=== PATIENT | female | born 1990 | race Caucasian/White ===

== ENCOUNTER 2019-09-06 16:11 | Inpatient (IN) ==
[2019-09-06] MEDS ORDERED: BUTORPHANOL 2 MG/ML VIAL IV PRN (16:34)
[2019-09-06] MEDS ORDERED: MEPERIDINE 50 MG/1 ML VIAL IV PRN (16:34)
[2019-09-06] MEDS ORDERED: LIDOCAINE 1% 50 ML VIAL MISC INJ ONE (16:34)
[2019-09-06 17:01] LABS: Basophils % 0.2 % (0.0-0.8); Eosinophils # 0.1 10*3/uL (0.0-0.87); Eosinophils % 0.5 % (0.00-10.9); Hematocrit 34.3 VOL% (35.7-47.0); Hemoglobin 11.3 GM/DL (12.0-16.0); Immature Granulocytes % 0.5 %; Immature Granulocytes Absolute 0.06 #; Lymphocytes # 3.2 10*3/uL (1.4-4.0); Lymphocytes % 26.1 % (21.3-54.2); Mean Corpuscular HGB Conc 32.9 GM/DL (32-36); Mean Corpuscular Volume 96.6 FL (87-102); Mean Platelet Volume 9.9 FL (9.6-12.0); Monocytes % 6.3 % (1.7-12.7); Neutrophils % 66.4 % (38.7-73.9); Platelet Count 234 T/CUMM (130-400); Red Blood Count 3.55 MC/CUMM (3.8-5.5); Red Cell Distribution Width 12.9 % (9.3-17.3); White Blood Count 12.4 T/CUMM (4-12)
[2019-09-06 17:18] LABS: Bilirubin,Total 0.6 MG/DL (0.2-1.0); Calcium 8.6 MG/DL (8.5-10.1); Osmolality,Calculated 271.7 MOS/KG (273-304); Total Protein 7.2 G/DL (6.4-8.3)
[2019-09-06] MEDS: LACTATED RINGERS 1,000 ML IV SCH (18:20)
[2019-09-06] MEDS: ONDANSETRON 4 MG/2 ML VIAL IV PRN (22:33)
[2019-09-06] MEDS ORDERED: diphenhydrAMINE 50 MG/1 ML VIAL IV PRN ×2 (23:35)
[2019-09-06] MEDS ORDERED: FAMOTIDINE 20 MG/2 ML VIAL IV ONE (23:35)
[2019-09-06] MEDS ORDERED: hydrOXYzine HCL 25 MG/1 ML VIAL IM PRN (23:35)
[2019-09-06] MEDS ORDERED: ePHEDrine 50 MG/ML AMP IV PRN (23:35)
[2019-09-06] MEDS ORDERED: PROMETHAZINE 25 MG/1 ML VIAL IM ONE (23:35)
[2019-09-06] MEDS ORDERED: NALOXONE 0.4 MG/ML VIAL IV PRN (23:35)
[2019-09-06] MEDS ORDERED: CITRIC ACID/SODIUM CITRATE 30 ML UDCUP PO ONE (23:35)
[2019-09-06] MEDS ORDERED: fentaNYL 2 MCG/ROPIV 0.2% EPID 100 ML EPIDURAL SCH (23:45)
[2019-09-07] MEDS ORDERED: OXYTOCIN/LR 20 UNIT/1,000 ML BAG IV SCH
[2019-09-07] MEDS: LACTATED RINGERS 1,000 ML IV SCH (00:26)
[2019-09-07 02:01] LABS: Apearance,Urine CLEAR (Clear); Bilirubin,Urine Negative (Negative); Blood, Urine Negative (Negative); Glucose,Urine (UA) Negative (Negative); Ketones,Urine 20 mg/dL (Negative); Nitrite,Urine Negative (Negative); Protein,Urine Negative; RBC,Urine <1 /HPF (0-4); Squamous Epithelial Cell,Urine Occasional /HPF (0-10); Urine Color Straw (Yellow); Urine Specific Gravity 1.004 (1.001-1.035); Urine Urobilinogen < 2.0 EU/DL (0.2-1.0); WBC,Urine <1 /HPF (0-6)
[2019-09-07] MEDS: ONDANSETRON 4 MG/2 ML VIAL IV PRN (04:29)
[2019-09-07] MEDS ORDERED: miSOPROStoL 200 MCG TABLET ONE (05:01)
[2019-09-07] MEDS ORDERED: CARBOPROST TROMETHAMINE 250 MCG/ML AMP IM ONE (05:01)
[2019-09-07] MEDS ORDERED: METHYLERGONOVINE 0.2 MG/1 ML AMP ONE (05:01)
[2019-09-07] MEDS ORDERED: LIDOCAINE 1% 50 ML VIAL ONE (05:04)
[2019-09-07] MEDS ORDERED: ONDANSETRON 4 MG/2 ML VIAL IV PRN (06:20)
[2019-09-07] MEDS ORDERED: BISACODYL 10 MG SUPP RECTAL PRN (06:20)
[2019-09-07] MEDS ORDERED: HYDROCORTISONE 2.5% RECTAL CREAM 30 GM TUBE TOP PRN (06:20)
[2019-09-07] MEDS ORDERED: RHO(D) IMMUNE GLOBULIN 300 MCG SYRINGE IM ONE (06:20)
[2019-09-07] MEDS ORDERED: LANOLIN 50% CREAM 0.3 OZ TUBE TOP PRN (06:20)
[2019-09-07] MEDS ORDERED: MEASLES/MUMPS/RUBELLA VACCINE 0.5 ML VIAL SUBCUT ONE (06:20)
[2019-09-07] MEDS ORDERED: ACETAMINOPHEN 325 MG TABLET PO PRN (06:20)
[2019-09-07] MEDS ORDERED: OXYTOCIN/LR 20 UNIT/1,000 ML BAG IV ONE (06:20)
[2019-09-07] MEDS ORDERED: WITCH HAZEL PADS 100/JAR TOP PRN (06:20)
[2019-09-07] MEDS ORDERED: DIPH/TET/ACEL PERT BOOSTER VACCINE 0.5 ML VIAL IM ONE (06:20)
[2019-09-07] MEDS ORDERED: BENZOCAINE 20%/MENTHOL 0.5% SPRAY 56 GM CAN TOP PRN (06:20)
[2019-09-07] MEDS: IBUPROFEN 800 MG TABLET PO PRN ×2 (09:11→19:33)
[2019-09-07] MEDS: oxyCODONE/ACETAMINOPHEN 5-325 MG TABLET PO PRN ×2 (11:59→19:32)
[2019-09-07] MEDS: DOCUSATE SODIUM 100 MG CAPSULE PO SCH (19:33)
[2019-09-08] MEDS: IBUPROFEN 800 MG TABLET PO PRN ×2 (01:16→15:40)
[2019-09-08] MEDS: oxyCODONE/ACETAMINOPHEN 5-325 MG TABLET PO PRN ×3 (01:16→18:29)
[2019-09-08 02:23] LABS: Basophils % 0.2 % (0.0-0.8); Eosinophils # 0.1 10*3/uL (0.0-0.87); Eosinophils % 1.5 % (0.00-10.9); Hematocrit 30.2 VOL% (35.7-47.0); Hemoglobin 9.7 GM/DL (12.0-16.0); Immature Granulocytes % 0.4 %; Immature Granulocytes Absolute 0.04 #; Lymphocytes # 3.8 10*3/uL (1.4-4.0); Lymphocytes % 39.4 % (21.3-54.2); Mean Corpuscular HGB Conc 32.1 GM/DL (32-36); Mean Corpuscular Volume 99.7 FL (87-102); Mean Platelet Volume 9.7 FL (9.6-12.0); Monocytes % 8.3 % (1.7-12.7); Neutrophils % 50.2 % (38.7-73.9); Platelet Count 166 T/CUMM (130-400); Red Blood Count 3.03 MC/CUMM (3.8-5.5); White Blood Count 9.6 T/CUMM (4-12)
[2019-09-08] MEDS: DOCUSATE SODIUM 100 MG CAPSULE PO SCH ×2 (10:00→20:27)
[2019-09-08] MEDS ORDERED: diphenhydrAMINE 2% CREAM 28 GM TUBE TOP PRN (20:25)
[2019-09-09] MEDS: IBUPROFEN 800 MG TABLET PO PRN (03:32)
[2019-09-09] MEDS: oxyCODONE/ACETAMINOPHEN 5-325 MG TABLET PO PRN ×2 (03:33→10:05)
[2019-09-09 07:37] VITALS: BP 98/57
[2019-09-09] MEDS: DOCUSATE SODIUM 100 MG CAPSULE PO SCH ×2 (10:05→10:06)
== END 2019-09-09 12:15 | disposition home or self-care (01) | DRG 560 ==
LOC: N.LDOUT 16:11 → N.LD 16:16 → N.OB 09-07 13:50
PROVIDERS: ADMIT Obstetrics & Gynecology; ATTEND Obstetrics & Gynecology

== ENCOUNTER 2020-03-15 20:32 | Observation (INO) ==
[2020-03-15] MEDS ORDERED: OXYTOCIN/LR 20 UNIT/1,000 ML BAG IV ONE (20:57)
[2020-03-15] MEDS ORDERED: MAGNESIUM HYDROXIDE SUSP 30 ML UDCUP PO PRN (21:26)
[2020-03-15] MEDS ORDERED: ONDANSETRON 4 MG/2 ML VIAL IV PRN (21:26)
[2020-03-15] MEDS ORDERED: BISACODYL 10 MG SUPP RECTAL PRN (21:26)
[2020-03-15] MEDS ORDERED: ACETAMINOPHEN 325 MG TABLET PO PRN (21:26)
[2020-03-15] MEDS ORDERED: HYDROmorphone 2 MG/1 ML VIAL IV STA (21:28)
[2020-03-15] MEDS ORDERED: LACTATED RINGERS 1,000 ML IV SCH (21:30)
[2020-03-15 21:38] LABS: Basophils % 0.2 % (0.0-0.8); Eosinophils # 0.1 10*3/uL (0.0-0.87); Eosinophils % 1.1 % (0.00-10.9); Hemoglobin 11.5 GM/DL (12.0-16.0); Immature Granulocytes % 0.4 %; Immature Granulocytes Absolute 0.05 #; Lymphocytes # 4.3 10*3/uL (1.4-4.0); Lymphocytes % 37.8 % (21.3-54.2); Mean Corpuscular HGB Conc 32.9 GM/DL (32-36); Mean Corpuscular Volume 97.2 FL (87-102); Mean Platelet Volume 10.2 FL (9.6-12.0); Monocytes % 6.1 % (1.7-12.7); Neutrophils % 54.4 % (38.7-73.9); Platelet Count 225 T/CUMM (130-400); Red Cell Distribution Width 12.1 % (9.3-17.3); White Blood Count 11.4 T/CUMM (4-12)
[2020-03-15 21:42] LABS: Calcium 8.6 MG/DL (8.5-10.1); Osmolality,Calculated 272.7 MOS/KG (273-304)
[2020-03-15 21:58] LABS: Eosinophils 1 % (0-10); Lymphocytes 31 % (20-55); Segmented Neutrophils 63 % (50-85); Total Cells Counted 100
[2020-03-16] MEDS: IBUPROFEN 800 MG TABLET PO PRN ×2 (00:17→14:30)
[2020-03-16] MEDS ORDERED: ONDANSETRON 4 MG/2 ML VIAL IV PRN (00:57)
[2020-03-16] MEDS ORDERED: MEPERIDINE 25 MG/1 ML VIAL IV PRN (00:57)
[2020-03-16] MEDS ORDERED: OXYTOCIN/LR 20 UNIT/1,000 ML BAG IV ONE (08:35)
[2020-03-16] MEDS ORDERED: DOCUSATE SODIUM 100 MG CAPSULE PO SCH (09:00)
[2020-03-16 10:08] LABS: Basophils % 0.4 % (0.0-0.8); Eosinophils # 0.1 10*3/uL (0.0-0.87); Eosinophils % 1.6 % (0.00-10.9); Hematocrit 30.7 VOL% (35.7-47.0); Hemoglobin 10.2 GM/DL (12.0-16.0); Immature Granulocytes % 0.3 %; Immature Granulocytes Absolute 0.02 #; Lymphocytes # 3.1 10*3/uL (1.4-4.0); Lymphocytes % 39.2 % (21.3-54.2); Mean Corpuscular HGB Conc 33.2 GM/DL (32-36); Mean Corpuscular Volume 96.8 FL (87-102); Mean Platelet Volume 10.4 FL (9.6-12.0); Monocytes % 6.7 % (1.7-12.7); NRBC # 0.03 10*3/uL; Neutrophils % 51.8 % (38.7-73.9); Platelet Count 178 T/CUMM (130-400); Red Blood Count 3.17 MC/CUMM (3.8-5.5); Red Cell Distribution Width 12.3 % (9.3-17.3); White Blood Count 7.9 T/CUMM (4-12)
[2020-03-16 13:31] VITALS: BP 83/41
[2020-03-18 12:25] LABS: DRVVT Screen Ratio 1.05 ratio (<1.20); INR 1.2 (0.9-1.1)
[2020-03-19 12:07] LABS: Phospholipid Ab IgM, S 11.4 MPL
== END 2020-03-16 14:45 | disposition home or self-care (01) ==
LOC: N.EDINP 20:32 → N.ED 20:32 → N.OB 22:15
PROVIDERS: ADMIT Obstetrics & Gynecology; ATTEND Obstetrics & Gynecology

== ENCOUNTER 2022-11-01 06:57 | Inpatient (IN) ==
[2022-11-01] MEDS ORDERED: CARBOPROST TROMETHAMINE 250 MCG/ML AMP IM PRN (08:36)
[2022-11-01] MEDS ORDERED: METHYLERGONOVINE 0.2 MG/1 ML AMP IM PRN (08:36)
[2022-11-01] MEDS ORDERED: OXYTOCIN/LR 20 UNIT/1,000 ML BAG IV ONE ×2 (08:36→18:11)
[2022-11-01] MEDS ORDERED: BUTORPHANOL 2 MG/ML VIAL IV PRN (08:36)
[2022-11-01] MEDS ORDERED: MEPERIDINE 50 MG/1 ML VIAL IV PRN (08:36)
[2022-11-01] MEDS ORDERED: MEPERIDINE 25 MG/1 ML VIAL IV PRN (08:36)
[2022-11-01] MEDS ORDERED: BUTORPHANOL 1 MG/ML VIAL IV PRN (08:36)
[2022-11-01] MEDS ORDERED: ONDANSETRON 4 MG/2 ML VIAL IV PRN (08:36)
[2022-11-01] MEDS ORDERED: miSOPROStoL 200 MCG TABLET RECTAL PRN (08:36)
[2022-11-01] MEDS ORDERED: TRANEXAMIC ACID 1,000 MG in SODIUM CHLORIDE 0.9% 100 ML IV PRN (08:36)
[2022-11-01 09:01] LABS: Basophils % 0.2 % (0.0-0.8); Eosinophils % 0.4 % (0.00-10.9); Hemoglobin 11.5 GM/DL (12.0-16.0); Immature Granulocytes % 0.2 %; Immature Granulocytes Absolute 0.02 #; Lymphocytes % 33.9 % (21.3-54.2); Mean Corpuscular HGB Conc 32.9 GM/DL (32-36); Mean Platelet Volume 9.6 FL (9.6-12.0); Monocytes # 0.6 10*3/uL (0.11-0.8); Monocytes % 7.2 % (1.7-12.7); Neutrophils % 58.1 % (38.7-73.9); Platelet Count 215 T/CUMM (130-400); Red Cell Distribution Width 12.6 % (9.3-17.3); White Blood Count 8.91 T/CUMM (4-12)
[2022-11-01 09:07] LABS: Mucus,Urine Few /LPF (Occasional); RBC,Urine 1 /HPF (0-4); Squamous Epithelial Cell,Urine Occasional /HPF (0-10)
[2022-11-01 09:08] LABS: Bilirubin,Urine Negative (Negative); Blood, Urine Negative (Negative); Glucose,Urine (UA) Negative (Negative); Ketones,Urine Negative (Negative); Nitrite,Urine Negative (Negative); Protein,Urine Negative (Negative); Urine Appearance Clear (Clear); Urine Color Yellow (Yellow)
[2022-11-01 09:25] LABS: Albumin 2.8 G/DL (3.4-5.0); Bilirubin,Total 0.4 MG/DL (0.20-1.00); Calcium 8.6 MG/DL (8.5-10.1); Potassium 3.8 MMOL/L (3.5-5.1)
[2022-11-01 10:03] LABS: Hepatitis B Surface Ag Quant < 0.10 Index; Hepatitis B Surface Ag Result Non-Reactive (NonReactive)
[2022-11-01 10:42] LABS: Barbiturates Screen,Urine Negative (Negative); Benzodiazepines Screen,Urine Negative (Negative); Cannabinoid Screen,Urine Positive (Negative); Opiate Screen,Urine Negative (Negative); Phencyclidine Screen,Urine Negative (Negative)
[2022-11-01] MEDS: LACTATED RINGERS 1,000 ML IV SCH ×2 (12:54→15:03)
[2022-11-01] MEDS ORDERED: NALOXONE 0.4 MG/ML VIAL IV PRN (14:30)
[2022-11-01] MEDS ORDERED: FAMOTIDINE 20 MG/2 ML VIAL IV ONE (14:30)
[2022-11-01] MEDS ORDERED: fentaNYL 2 MCG/ROPIV 0.2% EPID 100 ML EPIDURAL SCH (14:30)
[2022-11-01] MEDS ORDERED: ePHEDrine 50 MG/ML VIAL IV PRN (14:30)
[2022-11-01] MEDS ORDERED: hydrOXYzine HCL 25 MG/1 ML VIAL IM PRN (14:30)
[2022-11-01] MEDS ORDERED: CITRIC ACID/SODIUM CITRATE 30 ML UDCUP PO ONE (14:30)
[2022-11-01] MEDS ORDERED: diphenhydrAMINE 50 MG/1 ML VIAL IV PRN ×2 (14:30)
[2022-11-01] MEDS ORDERED: miSOPROStoL 200 MCG TABLET ONE (16:06)
[2022-11-01] MEDS ORDERED: METHYLERGONOVINE 0.2 MG/1 ML AMP ONE (16:06)
[2022-11-01] MEDS ORDERED: CARBOPROST TROMETHAMINE 250 MCG/ML AMP IM ONE (16:06)
[2022-11-01 16:30] LABS: Cord Venous Blood HCO3 21.7 MMOL/L; Cord Venous Blood PCO2 43.2 MMHG
[2022-11-01] MEDS ORDERED: RHO(D) IMMUNE GLOBULIN 300 MCG SYRINGE IM ONE (18:11)
[2022-11-01] MEDS ORDERED: MEASLES/MUMPS/RUBELLA VACCINE 0.5 ML VIAL SUBCUT ONE (18:11)
[2022-11-01] MEDS ORDERED: WITCH HAZEL PADS 100/JAR TOP PRN (18:11)
[2022-11-01] MEDS ORDERED: oxyCODONE/ACETAMINOPHEN 5-325 MG TABLET PO PRN (18:11)
[2022-11-01] MEDS ORDERED: DIPH/TET/ACEL PERT BOOSTER VACCINE 0.5 ML VIAL IM ONE (18:11)
[2022-11-01] MEDS ORDERED: HYDROCORTISONE 2.5% RECTAL CREAM 30 GM TUBE TOP PRN (18:11)
[2022-11-01] MEDS ORDERED: ACETAMINOPHEN 325 MG TABLET PO PRN (18:11)
[2022-11-01] MEDS ORDERED: BENZOCAINE 20%/MENTHOL 0.5% SPRAY 56 GM CAN TOP PRN (18:11)
[2022-11-01] MEDS ORDERED: LANOLIN 50% CREAM 0.3 OZ TUBE TOP PRN (18:11)
[2022-11-01] MEDS ORDERED: BISACODYL 10 MG SUPP RECTAL PRN (18:11)
[2022-11-01] MEDS: oxyCODONE/ACETAMINOPHEN 5-325 MG TABLET PO PRN (18:18)
[2022-11-01] MEDS: DOCUSATE SODIUM 100 MG CAPSULE PO SCH (21:13)
[2022-11-01] MEDS: IBUPROFEN 800 MG TABLET PO PRN (21:13)
[2022-11-02 04:24] LABS: Basophils % 0.3 % (0.0-0.8); Eosinophils # 0.1 10*3/uL (0.0-0.87); Eosinophils % 0.4 % (0.00-10.9); Hematocrit 39.6 VOL% (35.7-47.0); Hemoglobin 12.4 GM/DL (12.0-16.0); Immature Granulocytes % 0.3 %; Immature Granulocytes Absolute 0.03 #; Lymphocytes # 4.2 10*3/uL (1.4-4.0); Lymphocytes % 37.6 % (21.3-54.2); Mean Corpuscular HGB Conc 31.3 GM/DL (32-36); Mean Corpuscular Volume 102.6 FL (87-102); Mean Platelet Volume 9.7 FL (9.6-12.0); Monocytes # 0.8 10*3/uL (0.11-0.8); Neutrophils % 54.4 % (38.7-73.9); Platelet Count 191 T/CUMM (130-400); Red Blood Count 3.86 MC/CUMM (3.8-5.5); Red Cell Distribution Width 12.7 % (9.3-17.3); White Blood Count 11.13 T/CUMM (4-12)
[2022-11-02] MEDS: DOCUSATE SODIUM 100 MG CAPSULE PO SCH ×2 (08:58→21:26)
[2022-11-02] MEDS: IBUPROFEN 800 MG TABLET PO PRN (11:11)
[2022-11-02] MEDS: oxyCODONE/ACETAMINOPHEN 5-325 MG TABLET PO PRN (13:43)
[2022-11-03 07:20] VITALS: BP 109/60
[2022-11-03] MEDS: DOCUSATE SODIUM 100 MG CAPSULE PO SCH (08:57)
== END 2022-11-03 12:35 | disposition home or self-care (01) | DRG 560 ==
LOC: N.LD 06:57 → N.OB 18:00
PROVIDERS: ADMIT Obstetrics & Gynecology; ATTEND Obstetrics & Gynecology